=== PATIENT | female | born 1970 | race Caucasian/White ===

== ENCOUNTER 2017-11-06 13:30 | Emergency (ER) | payer OTHER ==
[~2017-11-06] VITALS: Ht 162.6 cm; Wt 68.0 kg
[2017-11-06] MEDS ORDERED: NORCO 10-325 T1 EACH PO (13:39)
[2017-11-06] MEDS ORDERED: IBUPROFEN 800800 M1 PO (13:39)
[2017-11-06] MEDS ORDERED: XANAX1 MG PO (13:40)
[2017-11-06] MEDS ORDERED: NEURONTIN 300300 M1 PO (13:40)
[2017-11-06] MEDS ORDERED: CELEXA20 MG PO (13:40)
[2017-11-06] MEDS ORDERED: ZOLPIDEM TARTRA10 MG PO (13:41)
[2017-11-06 15:06] VITALS: BP 133/71
== END 2017-11-06 15:13 | disposition home or self-care (01) ==
LOC: ER 13:30
DX: R13.10 Dysphagia, unspecified (principal); K06.9 Disorder of gingiva and edentulous alveolar ridge, unspecified; F32.9 Major depressive disorder, single episode, unspecified; F41.9 Anxiety disorder, unspecified; F17.210 Nicotine dependence, cigarettes, uncomplicated; Z88.6 Allergy status to analgesic agent; Z88.2 Allergy status to sulfonamides